=== PATIENT | male | born 1965 | race Caucasian/White ===

== ENCOUNTER 2018-04-16 13:56 | Inpatient (IN) | payer OTHER ==
[2018-04-16 16:44] VITALS: BMI 21.2
--- NOTE | 2018-04-16 19:42 | HP ---
COWS - Scale Resting Pulse: 0= [place] 80 or Below Sweatin= Chills/Flushing Restless Observation: 3= Extraneous Movement Pupil Size: 0= Normal to Room Light Bone or Joint Aches: 1= Mild Discomfort Runny Nose/ Eye Tearin= Runny Nose/Eyes GI Upset > 30mins: 2= Nausea/Diarrhea Tremor Observation: 2= Slight Tremor Visible Yawning Observation: 2= >3x During Session Anxiety or Irritability: 2=Irritable/Anxious Goose Flesh Skin: 0=Smooth Skin COWS Score: 15 Admission [facility] - [facility] Chief Complaint: " I feel sick" Allergies/Adverse Reactions: Allergies Allergy/AdvReac Type Severity Reaction Status Date / Time No Known Allergies Allergy Verified 07/21/16 12:52 History of Present Illness: 52 yo male with hx of nicotine, aranza and IV heroin dependence is here seeking detox. PMHX: Hep C and treated, depression, anxiety, insomnia. Denies suicidal / homicidal ideation. Longest period of sobriety 5 years. Last detox 12 months ago at [facility]. Exam Limitations: No Limitations - Ebola screening Have you traveled outside of the country in the last 21 days: No Have you had contact with anyone from an Ebola affected area: No Have you been sick,other than usual withdrawal symptoms: No Do you have a fever: No - Review of Systems Constitutional: Chills, Diaphoresis, Loss of Appetite, Unintentional Wgt. Loss EENT: reports: Blurred Vision (weras aglsses), Dental Problems (poor dentition) , Other (runny nose) Respiratory: reports: No Symptoms reported Cardiac: reports: No Symptoms Reported GI: reports: Diarrhea, Nausea, Poor Appetite, Poor Fluid Intake, Vomiting : reports: No Symptoms Reported Musculoskeletal: reports: Back Pain, Joint Pain Integumentary: reports: No Symptoms Reported Neuro: reports: Weakness Endocrine: reports: Increased Thirst Hematology: reports: No Symptoms Reported Psychiatric: reports: Orientated x3, Anxious Other Systems: Reviewed and Negative Patient History - Patient Medical History Hx Anemia: No Hx Asthma: Yes (MDI) Hx Chronic Obstructive Pulmonary Disease (COPD): Yes (MDI) Hx Cancer: No Hx Cardiac Disorders: No Hx Congestive Heart Failure: No Hx Hypertension: No Hx Hypercholesterolemia: No Hx Pacemaker: No HX Cerebrovascular Accident: No Hx Seizures: No Hx Dementia: No Hx Diabetes: No Hx Gastrointestinal Disorders: Yes (acid reflux) Hx Liver Disease: Yes (Hep C and treated ) Hx Genitourinary Disorders: No Hx Sexually Transmitted Disorders: Yes (GONORRHEA 1987) Hx Renal Disease (ESRD): No Hx Thyroid Disease: No Hx Human Immunodeficiency Virus (HIV): No (NEGATIVE HX) Hx Hepatitis C: Yes (SINCE 18 YRS OLD--TREATED BUT STOPPED DUE TO SIDE EFFECTS) Hx Depression: No Hx Suicide Attempt: No (DENIES) Hx Bipolar Disorder: No Hx Schizophrenia: No - Patient Surgical History Past Surgical History: No Hx Neurologic Surgery: No Hx Cataract Extraction: No Hx Cardiac Surgery: No Hx Lung Surgery: No Hx Breast Surgery: No Hx Breast Biopsy: No Hx Abdominal Surgery: No Hx Appendectomy: No Hx Cholecystectomy: No Hx Genitourinary Surgery: No Hx Section: No Hx Orthopedic Surgery: No Hx Hysterectomy: No Anesthesia Reaction: No - PPD History Previous Implant?: Yes Documented Results: Negative w/proof Date: 07/23/16 PPD to be Administered?: Yes - Smoking Cessation Smoking history: Current every day smoker Have you smoked in the past 12 months: Yes Aproximately how many cigarettes per day: 20 Hx Chewing Tobacco Use: No Initiated information on smoking cessation: Yes 'Breaking Loose' booklet given: 04/16/18 - Substance & Tx. History Hx Alcohol Use: Yes Hx Substance Use: Yes Substance Use Type: Heroin, Opiates Hx Substance Use Treatment: Yes ([facility] 12 months ago ) - Substances Abused Heroin Route: Injection Frequency: Daily Amount used: 3 - 4 Age of first use: 17 Date of Last Use: 04/16/18 Family Disease History - Family Disease History Family Disease History: Diabetes: Father (), CA: Mother ( Lung cancer), Other: Father, Mother Admission Physical Exam BHS - Vital Signs Vital Signs: Vital Signs - 24 hr 04/16/18 16:41 Temperature 98.6 F Pulse Rate 71 Respiratory 18 Rate Blood Pressure 132/81 - Physical General Appearance: Yes: Disheveled, Mild Distress, Thin, Anxious, Other ( restless) HEENTM: Yes: EOMI, Hearing grossly Normal, Normal ENT Inspection, Normocephalic , Normal Voice, DAE, Pharynx Normal, Tm's normal, Other (wears glasses) Respiratory: Yes: Chest Non-Tender, Lungs Clear, Normal Breath Sounds, No Respiratory Distress, No Accessory Muscle Use Neck: Yes: Within Normal Limits Breast: Yes: Breast Exam Deferred Cardiology: Yes: Regular Rhythm, Regular Rate Abdominal: Yes: Normal Bowel Sounds, Non Tender, Flat, Soft Genitourinary: Yes: Within Normal Limits Back: Yes: Normal Inspection Musculoskeletal: Yes: full range of Motion, Gait Steady, Pelvis Stable Extremities: Yes: Normal Capillary Refill, Normal Inspection, Normal Range of Motion, Non-Tender 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 NML intact, Fully Oriented, Alert, Motor Strength 5/5, Depressed Affect Integumentary: Yes: Normal Color, Warm, Diaphoresis Lymphatic: Yes: Within Normal Limits - Diagnostic (1) Opioid dependence with withdrawal Current Visit: Yes Status: Acute (2) COPD (chronic obstructive pulmonary disease) Current Visit: Yes Status: Chronic Qualifiers: COPD type: emphysema Emphysema type: unspecified Qualified Code(s): J43.9 - Emphysema, unspecified (3) Hx of hepatitis C Current Visit: Yes Status: Chronic (4) Anxious mood Current Visit: Yes Status: Acute (5) Weight loss Current Visit: Yes Status: Acute Cleared for Admission [facility] - Detox or Rehab [facility] Level of Care: Medically Managed Detox Regimen/Protocol: Methadone [facility] Breath Alcohol Content Breath Alcohol Content: 0 Urine Drug Screen - Results Drug Screen Negative: No Urine Drug Screen Results: OPI-Opiates
[2018-04-16] MEDS ORDERED: NICOTINE POLACRILEX 2 MG GUM BC PRN (19:46)
[2018-04-16] MEDS ORDERED: MAGNESIUM CITRATE 300 ML BOTTLE PO PRN (19:46)
[2018-04-16] MEDS ORDERED: LOPERAMIDE HCL 2 MG CAPSULE PO PRN (19:46)
[2018-04-16] MEDS ORDERED: guaiFENesin/D-METHORPHAN HB 10 ML UNIT-DOSE CUPS PO PRN (19:46)
[2018-04-16] MEDS ORDERED: IBUPROFEN 400 MG TABLET (FP) PO PRN (19:46)
[2018-04-16] MEDS ORDERED: ACETAMINOPHEN 325 MG TABLET (FP) PO PRN (19:46)
[2018-04-16] MEDS ORDERED: MENTHOL/PHENOL 1 EACH UD MM PRN (19:46)
[2018-04-16] MEDS ORDERED: P-EPHED 60MG/TRIPROLIDI 2.5MG TABLET PO PRN (19:46)
[2018-04-16] MEDS ORDERED: MAGNESIUM HYDROX 2400MG/30ML ORAL SUSPENSION 30 ML CUP PO PRN (19:46)
[2018-04-16] MEDS ORDERED: hydrOXYzine PAMOATE 50 MG CAPSULE (FP) PO PRN (19:46)
[2018-04-16] MEDS ORDERED: MAG HYDROX/AL HYDROX/SIMETH 30 ML UNIT-DOSE CUP PO PRN (19:46)
[2018-04-16] MEDS ORDERED: METHADONE HCL 10 MG TABLET (FOR DETOX USE ONLY) PO ONE ×3 (19:46→23:00)
[2018-04-16] MEDS ORDERED: ALBUTEROL SO4 18 GM HFA INHALER IH PRN (19:49)
[2018-04-16] MEDS ORDERED: ALBUTEROL SO4 0.083% IH SOL 2.5 MG/3 ML VIAL.NEB. NEB PRN (19:49)
[2018-04-16] MEDS ORDERED: diphenhydrAMINE HCL 25 MG CAPSULE (FP) PO ONE (21:39)
[2018-04-16] MEDS: THIAMINE HCL 100 MG TABLET (FP) PO SCH (22:41)
[2018-04-16] MEDS: diazePAM 5 MG TABLET PO PRN (22:42)
[2018-04-16 23:05] LABS: URINE APPEARANCE CLEAR; URINE BILIRUBIN NEGATIVE (<2.0 mg/dL); URINE COLOR YELLOW; URINE GLUCOSE (UA) NEGATIVE (NEGATIVE); URINE KETONE NEGATIVE (NEGATIVE); URINE LEUK ESTERASE NEGATIVE (NEGATIVE); URINE NITRITE NEGATIVE (NEGATIVE); URINE PROTEIN NEGATIVE (NEGATIVE)
[2018-04-17] MEDS: diazePAM 5 MG TABLET PO PRN ×4 (05:36→22:26)
[2018-04-17] MEDS ORDERED: METHADONE HCL 10 MG TABLET (FOR DETOX USE ONLY) PO ONE (10:00)
[2018-04-17] MEDS: NICOTINE 21 MG/24 HOURS TOPICAL PATCH TD SCH (10:36)
[2018-04-17] MEDS: PANTOPRAZOLE 40 MG TABLET (FP) PO SCH (10:36)
[2018-04-17] MEDS: PRENATAL VITAMINS W/ FOLIC ACID TABLET (FP) PO SCH (10:36)
--- NOTE | 2018-04-17 10:37 | CONSULT ---
[facility] Psychiatric Consult - Data Date of interview: 04/17/18 Admission source: [facility] Identifying data: This is a 52 years old male, wodowed, father of one, eduardo; ess, unemployed, on PA, with no psychiatric hospitalization history, with history of nicotine, aranza and IV heroin dependence is here seeking detox, reporting withdrawal symptoms Substance Abuse History: - Smoking Cessation. Smoking history: Current every day smoker. Have you smoked in the past 12 months: Yes. Aproximately how many cigarettes per day: 20. Hx Chewing Tobacco Use: No. Initiated information on smoking cessation: Yes. 'Breaking Loose' booklet given: 04/16/18. - Substance & Tx. History. Hx Alcohol Use: Yes. Hx Substance Use: Yes. Substance Use Type : Heroin, Opiates. Hx Substance Use Treatment: Yes ([facility] 12 months ago ). - Substances Abused. Heroin. Route: Injection. Frequency: Daily. Amount used: 3 - 4. Age of first use: 17. Date of Last Use: 04/16/18 Medical History: Weight loss history, HepC+, COPD Psychiatric History: Patient reports history of depression and anxiety, reports takign prior to admission: Elavil 25mg po qhs Physical/Sexual Abuse/Trauma History: Denies Additional Comment: Elavil 25mg po qhs Mental Status Exam - Mental Status Exam Alert and Oriented to: Person Cognitive Function: Fair Patient Appearance: Unkempt Mood: Sad Affect: Flat Patient Behavior: Sedated Speech Pattern: Delayed Voice Loudness: Mildly Soft/Quiet Thought Process: Circumstantial Thought Disorder: Being Controlled Hallucinations: Denies Suicidal Ideation: Denies Homicidal Ideation: Denies Insight/Judgement: Fair Sleep: Difficulty falling asleep Appetite: Weight loss Muscle strength/Tone: Mild Hypotonicity Gait/Station: Shuffling Additional Comments: Elavil 25mg po qhs Psychiatric Findings - Problem List ([place] 1, 2,3) (1) Opioid dependence with withdrawal Current Visit: Yes Status: Acute (2) Weight loss Current Visit: Yes Status: Acute (3) Alcohol dependence Current Visit: No Status: Acute (4) Substance induced mood disorder Current Visit: No Status: Chronic - Initial Treatment Plan Initial Treatment Plan: Elavil 25mg po qhs
[2018-04-17 10:49] LABS: CHLORIDE 108 mmol/L (98-107); POTASSIUM 3.7 mmol/L (3.5-5.1); SODIUM 141 mmol/L (136-145)
[2018-04-17 10:50] LABS: HEMATOCRIT 39.6 % (35.4-49); HEMOGLOBIN 13.6 GM/dL (11.7-16.9); MCH 31.5 pg (25.7-33.7); MCHC 34.4 g/dl (32.0-35.9); MEAN CELL VOLUME 91.7 fl (80-96); PLATELET COUNT 199 K/MM3 (134-434); RBC 4.31 M/mm3 (4.00-5.60); RDW 13.7 % (11.9-15.9); WHITE BLOOD COUNT 6.2 K/mm3 (4.0-10.0)
[2018-04-17 11:19] LABS: ALK PHOS 57 U/L (45-117); ANION GAP 6 (8-16); BILIRUBIN,TOTAL 0.4 mg/dL (0.2-1.0); BLOOD UREA NITROGEN 15 mg/dL (7-18); CALCIUM 7.9 mg/dL (8.5-10.1); CO2 27 mmol/L (21-32); CREATININE 0.9 mg/dL (0.7-1.3); GLUCOSE,RANDOM 116 mg/dL (74-106); SGOT/AST 23 U/L (15-37); SGPT/ALT 36 U/L (12-78); TOT PROT 5.9 g/dl (6.4-8.2)
--- NOTE | 2018-04-17 11:49 | PN ---
BHS COWS - Scale Resting Pulse: 0= [place] 80 or Below Sweatin= Chills/Flushing Restless Observation: 1= Difficult to Sit Still Pupil Size: 1= Pupils >than Normal Bone or Joint Aches: 2= Severe Diffuse Aches Runny Nose/ Eye Tearin= Runny Nose/Eyes GI Upset > 30mins: 2= Nausea/Diarrhea Tremor Observation of Outstretched Hands: 1= Tremor [place], Not Seen Yawning Observation: 2= >3x During Session Anxiety or Irritability: 2=Irritable/Anxious Goose Flesh Skin: 0=Smooth Skin COWS Score: 14 S Progress Note (SOAP) Subjective: joint pain body ache stuffy nose chill trouble sleep at night Objective: 04/17/18 11:47 Vital Signs Temperature 98.1 F 04/17/18 10:01 Pulse Rate 74 04/17/18 10:01 Respiratory Rate 16 04/17/18 10:01 Blood Pressure 107/65 04/17/18 10:01 O2 Sat by Pulse Oximetry (%) Laboratory Last Values WBC 6.2 K/mm3 (4.0-10.0) D 04/17/18 07:30 RBC 4.31 M/mm3 (4.00-5.60) 04/17/18 07:30 Hgb 13.6 GM/dL (11.7-16.9) 04/17/18 07:30 Hct 39.6 % (35.4-49) 04/17/18 07:30 MCV 91.7 fl (80-96) 04/17/18 07:30 MCH 31.5 pg (25.7-33.7) 04/17/18 07:30 MCHC 34.4 g/dl (32.0-35.9) 04/17/18 07:30 RDW 13.7 % (11.9-15.9) 04/17/18 07:30 Plt Count 199 K/MM3 (134-434) D 04/17/18 07:30 MPV 8.0 fl (7.5-11.1) 04/17/18 07:30 Sodium 141 mmol/L (136-145) 04/17/18 07:30 Potassium 3.7 mmol/L (3.5-5.1) 04/17/18 07:30 Chloride 108 mmol/L (98-107) H 04/17/18 07:30 Carbon Dioxide 27 mmol/L (21-32) 04/17/18 07:30 Anion Gap 6 (8-16) L 04/17/18 07:30 BUN 15 mg/dL (7-18) D 04/17/18 07:30 Creatinine 0.9 mg/dL (0.7-1.3) 04/17/18 07:30 Creat Clearance w eGFR > 60 (>60) 04/17/18 07:30 Random Glucose 116 mg/dL (74-106) H D 04/17/18 07:30 Calcium 7.9 mg/dL (8.5-10.1) L 04/17/18 07:30 Total Bilirubin 0.4 mg/dL (0.2-1.0) 04/17/18 07:30 AST 23 U/L (15-37) 04/17/18 07:30 ALT 36 U/L (12-78) 04/17/18 07:30 Alkaline Phosphatase 57 U/L (45-117) 04/17/18 07:30 Total Protein 5.9 g/dl (6.4-8.2) L 04/17/18 07:30 Albumin 3.0 g/dl (3.4-5.0) L D 04/17/18 07:30 Urine Color Yellow 04/16/18 22:13 Urine Appearance Clear 04/16/18 22:13 Urine pH 7.0 (5.0-8.0) D 04/16/18 22:13 Ur Specific [place] 1.023 (1.001-1.035) 04/16/18 22:13 Urine Protein Negative (NEGATIVE) 04/16/18 22:13 Urine Glucose (UA) Negative (NEGATIVE) 04/16/18 22:13 Urine Ketones Negative (NEGATIVE) 04/16/18 22:13 Urine Blood Negative (NEGATIVE) 04/16/18 22:13 Urine Nitrite Negative (NEGATIVE) 04/16/18 22:13 Urine Bilirubin Negative (<2.0 mg/dL) 04/16/18 22:13 Urine Urobilinogen 2.0 mg/dL (0.2-1.0) 04/16/18 22:13 Ur Leukocyte Esterase Negative (NEGATIVE) 04/16/18 22:13 lab noted low calcium serum Assessment: 04/17/18 11:48 withdrawal sx hypocalcium Plan: continue detox calcium carbonate supplement
[2018-04-17] MEDS: CALCIUM CARBONATE 650 MG TABLET PO SCH (12:19)
--- NOTE | 2018-04-17 13:29 | EKG ---
Test Reason : Blood Pressure : / mmHG Vent. Rate : 073 BPM Atrial Rate : 073 BPM P-R Int : 128 ms QRS Dur : 098 ms QT Int : 420 ms P-R-T Axes : 063 087 072 degrees QTc Int : 462 ms NORMAL SINUS RHYTHM ANTEROLATERAL INFARCT , AGE UNDETERMINED ABNORMAL ECG NO PREVIOUS ECGS AVAILABLE Confirmed by MIKE OLEARY MD ([id number]) on 04/17/2018 1:29:28 PM Referred By: Confirmed By:MIKE OLEARY MD
--- NOTE | 2018-04-17 13:30 | EKG ---
Test Reason : Blood Pressure : / mmHG Vent. Rate : 073 BPM Atrial Rate : 073 BPM P-R Int : 126 ms QRS Dur : 094 ms QT Int : 400 ms P-R-T Axes : 056 091 081 degrees QTc Int : 440 ms NORMAL SINUS RHYTHM LOW VOLTAGE QRS ANTEROLATERAL INFARCT (CITED ON OR BEFORE 16-APR-2018) ABNORMAL ECG WHEN COMPARED WITH ECG OF 16-APR-2018 22:26, NO SIGNIFICANT CHANGE WAS FOUND Confirmed by MIKE OLEARY MD ([id number]) on 04/17/2018 1:30:23 PM Referred By: Confirmed By:MIKE OLEARY MD
[2018-04-17] MEDS: MELATONIN 5 MG TABLETS PO PRN (22:26)
[2018-04-17] MEDS: THIAMINE HCL 100 MG TABLET (FP) PO SCH (22:26)
[2018-04-17] MEDS: AMITRIPTYLINE HCL 25 MG TABLET (FP) PO SCH (22:26)
[2018-04-18] MEDS: diazePAM 5 MG TABLET PO PRN ×4 (06:11→22:31)
[2018-04-18] MEDS: PANTOPRAZOLE 40 MG TABLET (FP) PO SCH (09:17)
[2018-04-18] MEDS: PRENATAL VITAMINS W/ FOLIC ACID TABLET (FP) PO SCH (09:17)
[2018-04-18] MEDS: CALCIUM CARBONATE 650 MG TABLET PO SCH (09:18)
[2018-04-18] MEDS: NICOTINE 21 MG/24 HOURS TOPICAL PATCH TD SCH (09:18)
[2018-04-18] MEDS ORDERED: METHADONE HCL 5 MG TABLET (FOR DETOX USE ONLY) PO ONE (10:00)
--- NOTE | 2018-04-18 11:29 | PN ---
BHS COWS - Scale Resting Pulse: 0= [place] 80 or Below Sweatin= Chills/Flushing Restless Observation: 1= Difficult to Sit Still Pupil Size: 1= Pupils >than Normal Bone or Joint Aches: 2= Severe Diffuse Aches Runny Nose/ Eye Tearin= Nasal Congestion GI Upset > 30mins: 1= Stomach Cramp Tremor Observation of Outstretched Hands: 2= Slight Tremor Visible Yawning Observation: 2= >3x During Session Anxiety or Irritability: 2=Irritable/Anxious Goose Flesh Skin: 0=Smooth Skin COWS Score: 13 BHS Progress Note (SOAP) Subjective: body ache joints pain sweat mild gi distress trouble sleep at night Objective: 04/18/18 11:28 Vital Signs Temperature 98 F 04/18/18 10:40 Pulse Rate 67 04/18/18 10:40 Respiratory Rate 16 04/18/18 10:40 Blood Pressure 115/83 04/18/18 10:40 O2 Sat by Pulse Oximetry (%) Laboratory Last Values WBC 6.2 K/mm3 (4.0-10.0) D 04/17/18 07:30 RBC 4.31 M/mm3 (4.00-5.60) 04/17/18 07:30 Hgb 13.6 GM/dL (11.7-16.9) 04/17/18 07:30 Hct 39.6 % (35.4-49) 04/17/18 07:30 MCV 91.7 fl (80-96) 04/17/18 07:30 MCH 31.5 pg (25.7-33.7) 04/17/18 07:30 MCHC 34.4 g/dl (32.0-35.9) 04/17/18 07:30 RDW 13.7 % (11.9-15.9) 04/17/18 07:30 Plt Count 199 K/MM3 (134-434) D 04/17/18 07:30 MPV 8.0 fl (7.5-11.1) 04/17/18 07:30 Sodium 141 mmol/L (136-145) 04/17/18 07:30 Potassium 3.7 mmol/L (3.5-5.1) 04/17/18 07:30 Chloride 108 mmol/L (98-107) H 04/17/18 07:30 Carbon Dioxide 27 mmol/L (21-32) 04/17/18 07:30 Anion Gap 6 (8-16) L 04/17/18 07:30 BUN 15 mg/dL (7-18) D 04/17/18 07:30 Creatinine 0.9 mg/dL (0.7-1.3) 04/17/18 07:30 Creat Clearance w eGFR > 60 (>60) 04/17/18 07:30 Random Glucose 116 mg/dL (74-106) H D 04/17/18 07:30 Calcium 7.9 mg/dL (8.5-10.1) L 04/17/18 07:30 Total Bilirubin 0.4 mg/dL (0.2-1.0) 04/17/18 07:30 AST 23 U/L (15-37) 04/17/18 07:30 ALT 36 U/L (12-78) 04/17/18 07:30 Alkaline Phosphatase 57 U/L (45-117) 04/17/18 07:30 Total Protein 5.9 g/dl (6.4-8.2) L 04/17/18 07:30 Albumin 3.0 g/dl (3.4-5.0) L D 04/17/18 07:30 Urine Color Yellow 04/16/18 22:13 Urine Appearance Clear 04/16/18 22:13 Urine pH 7.0 (5.0-8.0) D 04/16/18 22:13 Ur Specific [place] 1.023 (1.001-1.035) 04/16/18 22:13 Urine Protein Negative (NEGATIVE) 04/16/18 22:13 Urine Glucose (UA) Negative (NEGATIVE) 04/16/18 22:13 Urine Ketones Negative (NEGATIVE) 04/16/18 22:13 Urine Blood Negative (NEGATIVE) 04/16/18 22:13 Urine Nitrite Negative (NEGATIVE) 04/16/18 22:13 Urine Bilirubin Negative (<2.0 mg/dL) 04/16/18 22:13 Urine Urobilinogen 2.0 mg/dL (0.2-1.0) 04/16/18 22:13 Ur Leukocyte Esterase Negative (NEGATIVE) 04/16/18 22:13 RPR Titer Nonreactive (NONREACTIVE) 04/17/18 07:30 HIV 1&2 Antibody Screen Negative 04/17/18 07:30 HIV P24 Antigen Negative 04/17/18 07:30 lab noted Assessment: 04/18/18 11:28 withdrawal sx Plan: continue detox
[2018-04-18] MEDS: THIAMINE HCL 100 MG TABLET (FP) PO SCH (22:30)
[2018-04-18] MEDS: AMITRIPTYLINE HCL 25 MG TABLET (FP) PO SCH (22:30)
[2018-04-18] MEDS: MELATONIN 5 MG TABLETS PO PRN (22:30)
[2018-04-19] MEDS: diazePAM 5 MG TABLET PO PRN ×3 (05:26→17:14)
--- NOTE | 2018-04-19 09:43 | PN ---
BHS Progress Note (SOAP) Subjective: joint pain body ache sweat tremor irritable anxiety Objective: 04/19/18 09:44 Vital Signs Temperature 98.1 F 04/19/18 09:11 Pulse Rate 84 04/19/18 09:11 Respiratory Rate 16 04/19/18 09:11 Blood Pressure 127/84 04/19/18 09:11 O2 Sat by Pulse Oximetry (%) Laboratory Last Values WBC 6.2 K/mm3 (4.0-10.0) D 04/17/18 07:30 RBC 4.31 M/mm3 (4.00-5.60) 04/17/18 07:30 Hgb 13.6 GM/dL (11.7-16.9) 04/17/18 07:30 Hct 39.6 % (35.4-49) 04/17/18 07:30 MCV 91.7 fl (80-96) 04/17/18 07:30 MCH 31.5 pg (25.7-33.7) 04/17/18 07:30 MCHC 34.4 g/dl (32.0-35.9) 04/17/18 07:30 RDW 13.7 % (11.9-15.9) 04/17/18 07:30 Plt Count 199 K/MM3 (134-434) D 04/17/18 07:30 MPV 8.0 fl (7.5-11.1) 04/17/18 07:30 Sodium 141 mmol/L (136-145) 04/17/18 07:30 Potassium 3.7 mmol/L (3.5-5.1) 04/17/18 07:30 Chloride 108 mmol/L (98-107) H 04/17/18 07:30 Carbon Dioxide 27 mmol/L (21-32) 04/17/18 07:30 Anion Gap 6 (8-16) L 04/17/18 07:30 BUN 15 mg/dL (7-18) D 04/17/18 07:30 Creatinine 0.9 mg/dL (0.7-1.3) 04/17/18 07:30 Creat Clearance w eGFR > 60 (>60) 04/17/18 07:30 Random Glucose 116 mg/dL (74-106) H D 04/17/18 07:30 Calcium 7.9 mg/dL (8.5-10.1) L 04/17/18 07:30 Total Bilirubin 0.4 mg/dL (0.2-1.0) 04/17/18 07:30 AST 23 U/L (15-37) 04/17/18 07:30 ALT 36 U/L (12-78) 04/17/18 07:30 Alkaline Phosphatase 57 U/L (45-117) 04/17/18 07:30 Total Protein 5.9 g/dl (6.4-8.2) L 04/17/18 07:30 Albumin 3.0 g/dl (3.4-5.0) L D 04/17/18 07:30 Urine Color Yellow 04/16/18 22:13 Urine Appearance Clear 04/16/18 22:13 Urine pH 7.0 (5.0-8.0) D 04/16/18 22:13 Ur Specific [place] 1.023 (1.001-1.035) 04/16/18 22:13 Urine Protein Negative (NEGATIVE) 04/16/18 22:13 Urine Glucose (UA) Negative (NEGATIVE) 04/16/18 22:13 Urine Ketones Negative (NEGATIVE) 04/16/18 22:13 Urine Blood Negative (NEGATIVE) 04/16/18 22:13 Urine Nitrite Negative (NEGATIVE) 04/16/18 22:13 Urine Bilirubin Negative (<2.0 mg/dL) 04/16/18 22:13 Urine Urobilinogen 2.0 mg/dL (0.2-1.0) 04/16/18 22:13 Ur Leukocyte Esterase Negative (NEGATIVE) 04/16/18 22:13 RPR Titer Nonreactive (NONREACTIVE) 04/17/18 07:30 HIV 1&2 Antibody Screen Negative 04/17/18 07:30 HIV P24 Antigen Negative 04/17/18 07:30 continue calcium lab noted 04/19/18 09:45 Assessment: 04/19/18 09:45 withdrawal sx Plan: continue detox
[2018-04-19] MEDS ORDERED: METHADONE HCL 5 MG TABLET (FOR DETOX USE ONLY) PO ONE (10:00)
[2018-04-19] MEDS: PRENATAL VITAMINS W/ FOLIC ACID TABLET (FP) PO SCH (10:23)
[2018-04-19] MEDS: PANTOPRAZOLE 40 MG TABLET (FP) PO SCH (10:23)
[2018-04-19] MEDS: NICOTINE 21 MG/24 HOURS TOPICAL PATCH TD SCH (10:27)
[2018-04-19] MEDS: CALCIUM CARBONATE 650 MG TABLET PO SCH (10:27)
[2018-04-19] MEDS: THIAMINE HCL 100 MG TABLET (FP) PO SCH (22:16)
[2018-04-19] MEDS: AMITRIPTYLINE HCL 25 MG TABLET (FP) PO SCH (22:16)
[2018-04-19] MEDS: MELATONIN 5 MG TABLETS PO PRN (22:17)
[2018-04-20] MEDS: PRENATAL VITAMINS W/ FOLIC ACID TABLET (FP) PO SCH (09:47)
[2018-04-20] MEDS: PANTOPRAZOLE 40 MG TABLET (FP) PO SCH (09:47)
[2018-04-20] MEDS: CALCIUM CARBONATE 650 MG TABLET PO SCH (09:48)
[2018-04-20] MEDS: NICOTINE 21 MG/24 HOURS TOPICAL PATCH TD SCH (09:49)
[2018-04-20] MEDS ORDERED: METHADONE HCL 10 MG TABLET (FOR DETOX USE ONLY) PO ONE (10:00)
--- NOTE | 2018-04-20 13:28 | PN ---
[facility] Progress Note Note: alert,irritable,anxious,interrupted sleep,pain in the body aches Vital Signs Temperature 97.0 F L 04/20/18 10:00 Pulse Rate 82 04/20/18 10:00 Respiratory Rate 18 04/20/18 10:00 Blood Pressure 137/86 04/20/18 10:00 O2 Sat by Pulse Oximetry (%) Laboratory Last Values WBC 6.2 K/mm3 (4.0-10.0) D 04/17/18 07:30 RBC 4.31 M/mm3 (4.00-5.60) 04/17/18 07:30 Hgb 13.6 GM/dL (11.7-16.9) 04/17/18 07:30 Hct 39.6 % (35.4-49) 04/17/18 07:30 MCV 91.7 fl (80-96) 04/17/18 07:30 MCH 31.5 pg (25.7-33.7) 04/17/18 07:30 MCHC 34.4 g/dl (32.0-35.9) 04/17/18 07:30 RDW 13.7 % (11.9-15.9) 04/17/18 07:30 Plt Count 199 K/MM3 (134-434) D 04/17/18 07:30 MPV 8.0 fl (7.5-11.1) 04/17/18 07:30 Sodium 141 mmol/L (136-145) 04/17/18 07:30 Potassium 3.7 mmol/L (3.5-5.1) 04/17/18 07:30 Chloride 108 mmol/L (98-107) H 04/17/18 07:30 Carbon Dioxide 27 mmol/L (21-32) 04/17/18 07:30 Anion Gap 6 (8-16) L 04/17/18 07:30 BUN 15 mg/dL (7-18) D 04/17/18 07:30 Creatinine 0.9 mg/dL (0.7-1.3) 04/17/18 07:30 Creat Clearance w eGFR > 60 (>60) 04/17/18 07:30 Random Glucose 116 mg/dL (74-106) H D 04/17/18 07:30 Calcium 7.9 mg/dL (8.5-10.1) L 04/17/18 07:30 Total Bilirubin 0.4 mg/dL (0.2-1.0) 04/17/18 07:30 AST 23 U/L (15-37) 04/17/18 07:30 ALT 36 U/L (12-78) 04/17/18 07:30 Alkaline Phosphatase 57 U/L (45-117) 04/17/18 07:30 Total Protein 5.9 g/dl (6.4-8.2) L 04/17/18 07:30 Albumin 3.0 g/dl (3.4-5.0) L D 04/17/18 07:30 Urine Color Yellow 04/16/18 22:13 Urine Appearance Clear 04/16/18 22:13 Urine pH 7.0 (5.0-8.0) D 04/16/18 22:13 Ur Specific [place] 1.023 (1.001-1.035) 04/16/18 22:13 Urine Protein Negative (NEGATIVE) 04/16/18 22:13 Urine Glucose (UA) Negative (NEGATIVE) 04/16/18 22:13 Urine Ketones Negative (NEGATIVE) 04/16/18 22:13 Urine Blood Negative (NEGATIVE) 04/16/18 22:13 Urine Nitrite Negative (NEGATIVE) 04/16/18 22:13 Urine Bilirubin Negative (<2.0 mg/dL) 04/16/18 22:13 Urine Urobilinogen 2.0 mg/dL (0.2-1.0) 04/16/18 22:13 Ur Leukocyte Esterase Negative (NEGATIVE) 04/16/18 22:13 RPR Titer Nonreactive (NONREACTIVE) 04/17/18 07:30 HIV 1&2 Antibody Screen Negative 04/17/18 07:30 HIV P24 Antigen Negative 04/17/18 07:30 withdrawal sx continue to monitor
--- NOTE | 2018-04-20 14:33 | PN ---
S Progress Note Note: Patient will go to rehab [place] today. Patient is in agreement. d/c order placed d/c methadone 5mg
[2018-04-20 17:42] VITALS: BP 133/79; PULSE 83; TEMP 97.9
[2018-04-21] MEDS ORDERED: METHADONE HCL 5 MG TABLET (FOR DETOX USE ONLY) PO ONE (06:00)
== END 2018-04-20 18:16 | disposition other institution (70) | DRG 773 ==
LOC: YASAS 13:56 → Y6N 20:54
PROVIDERS: ADMIT Surgery; ATTEND Surgery
PROC: HZ2ZZZZ Detoxification Services for Substance Abuse Treatment (ICD-10-PCS; principal; 2018-04-16)
DX: F11.23 Opioid dependence with withdrawal (principal); F10.20 Alcohol dependence, uncomplicated; F41.9 Anxiety disorder, unspecified; F19.24 Other psychoactive substance dependence with psychoactive substance-induced mood disorder; B18.2 Chronic viral hepatitis C; F43.9 Reaction to severe stress, unspecified; J45.909 Unspecified asthma, uncomplicated; R63.4 Abnormal weight loss; Z68.21 Body mass index [BMI] 21.0-21.9, adult; Z86.19 Personal history of other infectious and parasitic diseases; Z59.0 Homelessness
CPT/HCPCS: 36415; 80053; 81003; 85027; 86593; 87389; 93005; 93010

== ENCOUNTER 2018-04-20 18:14 | Inpatient (IN) | payer OTHER ==
[2018-04-20] MEDS ORDERED: MENTHOL/PHENOL 1 EACH UD MM PRN (19:29)
[2018-04-20] MEDS ORDERED: P-EPHED 60MG/TRIPROLIDI 2.5MG TABLET PO PRN (19:29)
[2018-04-20] MEDS ORDERED: LOPERAMIDE HCL 2 MG CAPSULE PO PRN (19:29)
[2018-04-20] MEDS ORDERED: IBUPROFEN 400 MG TABLET (FP) PO PRN (19:29)
[2018-04-20] MEDS ORDERED: MAG HYDROX/AL HYDROX/SIMETH 30 ML UNIT-DOSE CUP PO PRN (19:29)
[2018-04-20] MEDS ORDERED: MAGNESIUM CITRATE 300 ML BOTTLE PO PRN (19:29)
[2018-04-20] MEDS ORDERED: ACETAMINOPHEN 325 MG TABLET (FP) PO PRN (19:29)
[2018-04-20] MEDS ORDERED: MAGNESIUM HYDROX 2400MG/30ML ORAL SUSPENSION 30 ML CUP PO PRN (19:29)
[2018-04-20] MEDS ORDERED: guaiFENesin/D-METHORPHAN HB 10 ML UNIT-DOSE CUPS PO PRN (19:29)
[2018-04-20] MEDS ORDERED: hydrOXYzine PAMOATE 50 MG CAPSULE (FP) PO PRN (19:29)
[2018-04-20] MEDS ORDERED: NICOTINE POLACRILEX 2 MG GUM BUC PRN (19:30)
[2018-04-20] MEDS ORDERED: ALBUTEROL SO4 0.083% IH SOL 2.5 MG/3 ML VIAL.NEB. NEB PRN (19:31)
[2018-04-20] MEDS ORDERED: ALBUTEROL SO4 18 GM HFA INHALER IH PRN (19:31)
--- NOTE | 2018-04-20 19:33 | HP ---
[facility] Assess/Revision - Admission History Admitted to Rehab from: [facility] [place] Date of Admission to Rehab: 04/20/18 - Findings Detox History & Physical reviewed: Yes Concur with findings: Yes Inpatient Rehab Admission - Initial Determination Are CD services needed?: Yes Free of communicable disease: Yes Not in need of hospitalization: Yes - Rehab Admission Criteria Previous failed treatment: Yes Poor recovery environment: Yes Comorbidities: Yes Lacks judgement: Yes Patient is meeting Inpatient Rehab admission criteria:: Yes
[2018-04-20] MEDS: AMITRIPTYLINE HCL 25 MG TABLET (FP) PO SCH (21:15)
[2018-04-20] MEDS: THIAMINE HCL 100 MG TABLET (FP) PO SCH (21:15)
[2018-04-20] MEDS ORDERED: MELATONIN 5 MG TABLETS PO PRN (22:00)
[2018-04-21] MEDS: PANTOPRAZOLE 40 MG TABLET (FP) PO SCH (09:37)
[2018-04-21] MEDS: PRENATAL VITAMINS W/ FOLIC ACID TABLET (FP) PO SCH (09:37)
[2018-04-21] MEDS: NICOTINE 21 MG/24 HOURS TOPICAL PATCH TD SCH (12:28)
[2018-04-21] MEDS: THIAMINE HCL 100 MG TABLET (FP) PO SCH (22:00)
[2018-04-21] MEDS: AMITRIPTYLINE HCL 25 MG TABLET (FP) PO SCH (22:00)
[2018-04-22 06:45] VITALS: BP 121/89; PULSE 86; TEMP 98
[2018-04-22] MEDS: NICOTINE 21 MG/24 HOURS TOPICAL PATCH TD SCH (10:42)
[2018-04-22] MEDS: PRENATAL VITAMINS W/ FOLIC ACID TABLET (FP) PO SCH (10:42)
[2018-04-22] MEDS: PANTOPRAZOLE 40 MG TABLET (FP) PO SCH (10:42)
[2018-04-22] MEDS: THIAMINE HCL 100 MG TABLET (FP) PO SCH (23:48)
[2018-04-22] MEDS: AMITRIPTYLINE HCL 25 MG TABLET (FP) PO SCH (23:48)
[2018-04-23] MEDS: PANTOPRAZOLE 40 MG TABLET (FP) PO SCH (11:00)
[2018-04-23] MEDS: NICOTINE 21 MG/24 HOURS TOPICAL PATCH TD SCH (11:00)
[2018-04-23] MEDS: PRENATAL VITAMINS W/ FOLIC ACID TABLET (FP) PO SCH (11:00)
--- NOTE | 2018-04-23 15:09 | HP ---
Psychiatrist Admission - Data Date of interview: 04/23/18 Admission source: Transfer from [address] [place] [address] Identifying data: Case of a 52 y/o male seeking rehabilitation treatment at [address] to address alcohol and opioid dependence.Patient is ,a father of one,currently homeless,unemployed and supported on food stamps. Medical History: Remarkable for hepatitis C and COPD. Psychiatric History: Patient denies history of psychiatric hospitalizations but he aknowledges a prior contact with Psychiatry,several months ago,because of depression and anxiety.Briefly treated with an antidepressant (name not recalled ).Dropped out of treatment after a few sessions with psychiatrist.Used to be prescribed trazodone for insomnia.Stopped taking that drug due to side effects and his personal " fear " of psychotropic medications.Mr Gtz denies history of suicide attempts. Physical/Sexual Abuse/Trauma History: Patient denies history of abuse.Current stressors : separation from siblings,financial difficulties,addictions, homelessness and lack of a support network. Additional Comment: Urine Drug Screen Results: OPI-Opiates. Smoking history: Current every day smoker. Have you smoked in the past 12 months: Yes. Aproximately how many cigarettes per day: 20. Hx Chewing Tobacco Use: No. Initiated information on smoking cessation: Yes. 'Breaking Loose' booklet given : 04/16/18. - Substance & Tx. History. Hx Alcohol Use: Yes. Hx Substance Use : Yes. Substance Use Type: Heroin, Opiates. Hx Substance Use Treatment: Yes ( [facility] 12 months ago ). - Substances Abused. Heroin. Route: Injection. Frequency: Daily. Amount used: 3 - 4. Age of first use: 17. Date of Last Use : 04/16/18 Vital Signs: Vital Signs - 24 hr 04/23/18 04/23/18 04/23/18 00:30 03:30 07:02 Respiratory 18 18 18 Rate 04/23/18 07:33 Respiratory 18 Rate Allergies/Adverse Reactions: Allergies Allergy/AdvReac Type Severity Reaction Status Date / Time No Known Allergies Allergy Verified 04/16/18 21:10 - Substance Abuse/Tx History Hx Alcohol Use: Yes Hx Substance Use: Yes (heroin,alcohol,nicotine ) Substance Use Type: Alcohol, Heroin Hx Substance Use Treatment: Yes Mental Status Exam - Mental Status Exam Alert and Oriented to: Time, Place, Person Cognitive Function: Grossly Intact Patient Appearance: Unkempt, Disheveled Mood: Nervous, Irritable Affect: Mood Congruent, Constricted Patient Behavior: Cooperative Speech Pattern: Clear Voice Loudness: Normal Thought Process: Intact, Goal Oriented Thought Disorder: Not Present Hallucinations: Denies Suicidal Ideation: Denies Homicidal Ideation: Denies Insight/Judgement: Fair Sleep: Fair Appetite: Good Muscle strength/Tone: Normal Gait/Station: Normal Psychiatric Findings - Problem List ([place] 1, 2,3) (1) Opioid dependence Current Visit: Yes Status: Acute (2) Alcohol dependence Current Visit: Yes Status: Acute (3) Nicotine dependence Current Visit: Yes Status: Acute (4) Substance induced mood disorder Current Visit: Yes Status: Acute - Initial Treatment Plan Initial Treatment Plan: Psychoeducation.Sleep hygiene discussed in this session (patient declines to take hypnotic medications).Supportive/Group therapy.Observation.
[2018-04-23] MEDS: THIAMINE HCL 100 MG TABLET (FP) PO SCH (22:16)
[2018-04-23] MEDS: AMITRIPTYLINE HCL 25 MG TABLET (FP) PO SCH (22:16)
[2018-04-24] MEDS: PANTOPRAZOLE 40 MG TABLET (FP) PO SCH (10:34)
[2018-04-24] MEDS: NICOTINE 21 MG/24 HOURS TOPICAL PATCH TD SCH (10:34)
[2018-04-24] MEDS: PRENATAL VITAMINS W/ FOLIC ACID TABLET (FP) PO SCH (10:34)
--- NOTE | 2018-04-24 11:37 | PN ---
[facility] Progress Note Note: Psychiatric nurse practitioner note: Patient leaving AMA. Pt. encouraged to stay but refused to continue treatment. Pt. states he is not content with his treatment and prefers to go elsewhere. Pt. denies thoughts or urges to hurt himself or others.
== END 2018-04-24 11:30 | disposition left against medical advice (07) | DRG 770 ==
LOC: YASAS 18:14 → Y5N 18:15
PROVIDERS: ADMIT Psychiatry & Neurology Psychiatry; ATTEND Psychiatry & Neurology Psychiatry
PROC: HZ42ZZZ Group Counseling for Substance Abuse Treatment, Cognitive-Behavioral (ICD-10-PCS; principal; 2018-04-20)
DX: F11.20 Opioid dependence, uncomplicated (principal); F10.20 Alcohol dependence, uncomplicated; F17.210 Nicotine dependence, cigarettes, uncomplicated; F19.24 Other psychoactive substance dependence with psychoactive substance-induced mood disorder; Z59.0 Homelessness

== ENCOUNTER 2018-12-26 10:52 | Inpatient (IN) | payer BC, OTHER ==
[2018-12-26 11:18] VITALS: BMI 22.9
--- NOTE | 2018-12-26 13:13 | HP ---
COWS - Scale Resting Pulse: 1= [place] 81-100 Sweatin= Chills/Flushing Restless Observation: 1= Difficult to Sit Still Pupil Size: 0= Normal to Room Light Bone or Joint Aches: 4=Acute Joint/Muscle Pain Runny Nose/ Eye Tearin= Runny Nose/Eyes GI Upset > 30mins: 1= Stomach Cramp Tremor Observation: 0= None Yawning Observation: 1= 1-2x During Session Anxiety or Irritability: 2=Irritable/Anxious Goose Flesh Skin: 0=Smooth Skin COWS Score: 13 CIWA Score - Admission Criteria OASAS Guidelines: Admission for Medically Managed Detox: Requires at least one of the followin. CIWA greater than 12 2. Seizures within the past 24 hours 3. Delirium tremens within the past 24 hours 4. Hallucinations within the past 24 hours 5. Acute intervention needed for co occurring medical disorder 6. Acute intervention needed for co occurring psychiatric disorder 7. Severe withdrawal that cannot be handled at a lower level of care (continued vomiting, continued diarrhea, abnormal vital signs) requiring intravenous medication and/or fluids 8. Admission ROS [facility] - HPI Allergies/Adverse Reactions: Allergies Allergy/AdvReac Type Severity Reaction Status Date / Time No Known Allergies Allergy Verified 12/26/18 12:19 History of Present Illness: pt here requesting detox from heroin use, reports 4 bags/day IVDU and via inhalation intermittently x 15 years , detox " a handful of times, " , rehab 2 x , most recently 18 mo ago at this facility , latest use 2 a.m. denies other illicits claims took subutex 1 week ago . reports h/o OM 8 mo ago hospitalized x 8 weeks IV Abx [place], [place] . OD x 2 , Narcan by EMS 6 mo ago etoh - denies tobacco : 1 ppd PMhx: hep C, COPD , gerd , old right heel fracture ( no surgery ) PSHx : denies PSych : denies meds : protonix, albuterol Exam Limitations: No Limitations - Ebola screening Have you traveled outside of the country in the last 21 days: No Have you had contact with anyone from an Ebola affected area: No Have you been sick,other than usual withdrawal symptoms: No Do you have a fever: No - Review of Systems Constitutional: See HPI EENT: reports: Other (glasses , denies dysphgia) Respiratory: reports: No Symptoms reported Cardiac: reports: No Symptoms Reported GI: reports: See HPI : reports: No Symptoms Reported Musculoskeletal: reports: See HPI, Other (right heel pain old injury) Integumentary: reports: See HPI Neuro: reports: No Symptoms reported Endocrine: reports: No Symptoms Reported Psychiatric: reports: Orientated x3, Agitated, Anxious Patient History - Patient Medical History Hx Anemia: No Hx Asthma: No Hx Chronic Obstructive Pulmonary Disease (COPD): Yes Hx Cancer: No Hx Cardiac Disorders: No Hx Congestive Heart Failure: No Hx Hypertension: No Hx Hypercholesterolemia: No Hx Pacemaker: No HX Cerebrovascular Accident: No Hx Seizures: No Hx Dementia: No Hx Diabetes: No Hx Gastrointestinal Disorders: Yes (acid reflux) Hx Liver Disease: Yes (Hep C and treated ) Hx Genitourinary Disorders: No Hx Sexually Transmitted Disorders: No Hx Renal Disease (ESRD): No Hx Thyroid Disease: No Hx Human Immunodeficiency Virus (HIV): No (NEGATIVE HX) Hx Hepatitis C: Yes (SINCE 18 YRS OLD--TREATED BUT STOPPED DUE TO SIDE EFFECTS) Hx Depression: No Hx Suicide Attempt: No Hx Bipolar Disorder: No Hx Schizophrenia: No - Patient Surgical History Past Surgical History: No Hx Neurologic Surgery: No Hx Cataract Extraction: No Hx Cardiac Surgery: No Hx Lung Surgery: No Hx Breast Surgery: No Hx Breast Biopsy: No Hx Abdominal Surgery: No Hx Appendectomy: No Hx Cholecystectomy: No Hx Genitourinary Surgery: No Hx Section: No Hx Orthopedic Surgery: No Hx Hysterectomy: No Anesthesia Reaction: No - PPD History Previous Implant?: Yes Documented Results: Negative w/proof Implanted On Prior [facility] Admission?: Yes Date: 04/18/18 Results: 0 mm - Smoking Cessation Smoking history: Current every day smoker Have you smoked in the past 12 months: Yes Aproximately how many cigarettes per day: 20 Hx Chewing Tobacco Use: No Initiated information on smoking cessation: No - Substances Abused Heroin Route: Inhalation Frequency: Daily Amount used: 4-5 bags Age of first use: 18 Date of Last Use: 12/26/18 Suboxone Route: SL Frequency: 1-3 times last 30 days Amount used: 1 tab. Age of first use: 49 Date of Last Use: 12/30/18 Alcohol--vodka Route: Oral Frequency: 1-3 times last 30 days Amount used: 1/2 pt. Age of first use: 12 Date of Last Use: 12/19/18 Family Disease History - Family Disease History Family Disease History: Diabetes: Father (), CA: Mother ( Lung cancer), Other: Father, Mother Admission Physical Exam S - Vital Signs Vital Signs: Vital Signs - 24 hr 12/26/18 11:12 Temperature 97.6 F Pulse Rate 91 H Respiratory 18 Rate Blood Pressure 138/96 - Physical General Appearance: Yes: Mild Distress HEENTM: Yes: EOMI, Hearing grossly Normal, Normocephalic, Normal Voice, Other ( poor dentition, many missing teeth) Respiratory: Yes: Chest Non-Tender, Lungs Clear, Normal Breath Sounds Neck: Yes: No masses,lesions,Nodules, Trachea in good position Cardiology: Yes: Regular Rhythm, Regular Rate, S1, S2 Abdominal: Yes: Normal Bowel Sounds, Non Tender, Soft Genitourinary: Yes: Within Normal Limits Back: Yes: Normal Inspection Musculoskeletal: Yes: full range of Motion, Gait Steady Extremities: Yes: Normal Range of Motion, Non-Tender Neurological: Yes: Motor Strength 5/5, Normal Mood/Affect Integumentary: Yes: Normal Color, Track Hansen (bilateral ante- cubital) - Diagnostic (1) Nicotine dependence Current Visit: No Status: Chronic Qualifiers: Nicotine product type: cigarettes (2) Opioid dependence with withdrawal Current Visit: No Status: Acute BHS Breath Alcohol Content Breath Alcohol Content: 0.007 Urine Drug Screen - Results Drug Screen Negative: No Urine Drug Screen Results: OPI-Opiates, FEN-Fentanyl, BUP-Suboxone Inpatient Rehab Admission - Rehab Decision to Admit Inpatient rehab admission?: No
[2018-12-26] MEDS ORDERED: MENTHOL/PHENOL 1 EACH UD MM PRN (13:17)
[2018-12-26] MEDS ORDERED: MAG HYDROX/AL HYDROX/SIMETH 30 ML UNIT-DOSE CUP PO PRN (13:17)
[2018-12-26] MEDS ORDERED: NICOTINE POLACRILEX 2 MG GUM BUC PRN (13:17)
[2018-12-26] MEDS ORDERED: ACETAMINOPHEN 325 MG TABLET (FP) PO PRN (13:17)
[2018-12-26] MEDS ORDERED: MAGNESIUM HYDROX 2400MG/30ML ORAL SUSPENSION 30 ML CUP PO PRN (13:17)
[2018-12-26] MEDS ORDERED: guaiFENesin/D-METHORPHAN HB 10 ML UNIT-DOSE CUPS PO PRN (13:17)
[2018-12-26] MEDS ORDERED: P-EPHED 60MG/TRIPROLIDI 2.5MG TABLET PO PRN (13:17)
[2018-12-26] MEDS ORDERED: IBUPROFEN 400 MG TABLET (FP) PO PRN (13:17)
[2018-12-26] MEDS ORDERED: MAGNESIUM CITRATE 300 ML BOTTLE PO PRN (13:17)
[2018-12-26] MEDS ORDERED: ALBUTEROL SO4 8 GM HFA INHALER IH PRN (13:18)
[2018-12-26] MEDS ORDERED: ALBUTEROL SO4 0.083% IH SOL 2.5 MG/3 ML VIAL.NEB. NEB PRN (13:41)
[2018-12-26] MEDS ORDERED: METHADONE HCL 10 MG TABLET (FOR DETOX USE ONLY) PO ONE ×2 (14:30→23:00)
[2018-12-26] MEDS: hydrOXYzine PAMOATE 25 MG CAPSULE (FP) PO PRN ×2 (17:15→22:11)
[2018-12-26] MEDS: THIAMINE HCL 100 MG TABLET (FP) PO SCH (22:11)
[2018-12-26] MEDS: MELATONIN 5 MG TABLETS PO PRN (22:11)
[2018-12-27] MEDS ORDERED: METHADONE HCL 10 MG TABLET (FOR DETOX USE ONLY) PO ONE (10:00)
[2018-12-27] MEDS: PRENATAL VITAMINS W/ FOLIC ACID TABLET (FP) PO SCH (10:07)
[2018-12-27] MEDS: PANTOPRAZOLE 40 MG TABLET (FP) PO SCH (10:07)
[2018-12-27 10:08] LABS: HEMATOCRIT 44.4 % (35.4-49); HEMOGLOBIN 15.6 GM/dL (11.7-16.9); MCH 33.2 pg (25.7-33.7); MCHC 35.1 g/dl (32.0-35.9); MEAN CELL VOLUME 94.8 fl (80-96); MEAN PLT VOLUME 7.5 fl (7.5-11.1); PLATELET COUNT 310 K/MM3 (134-434); RBC 4.69 M/mm3 (4.00-5.60); RDW 13.4 % (11.9-15.9); WHITE BLOOD COUNT 7.6 K/mm3 (4.0-10.0)
[2018-12-27 10:30] LABS: ALBUMIN 3.6 g/dl (3.4-5.0); ALK PHOS 63 U/L (45-117); ANION GAP 8 MMOL/L (8-16); BILIRUBIN,TOTAL 0.3 mg/dL (0.2-1); BLOOD UREA NITROGEN 17 mg/dL (7-18); CALCIUM 8.6 mg/dL (8.5-10.1); CHLORIDE 102 mmol/L (98-107); CO2 28 mmol/L (21-32); CREATININE 0.8 mg/dL (0.55-1.3); GLUCOSE,RANDOM 120 mg/dL (74-106); POTASSIUM 4.1 mmol/L (3.5-5.1); SGOT/AST 27 U/L (15-37); SGPT/ALT 35 U/L (13-61); SODIUM 137 mmol/L (136-145); TOT PROT 7.5 g/dl (6.4-8.2)
[2018-12-27] MEDS ORDERED: TRIMETHOBENZAMIDE HCL 200MG/2ML INJ IM PRN (14:25)
--- NOTE | 2018-12-27 16:23 | PN ---
BHS COWS - Scale Resting Pulse: 1= [place] 81-100 Sweatin= Chills/Flushing Restless Observation: 0= Sits Still Pupil Size: 0= Normal to Room Light Bone or Joint Aches: 2= Severe Diffuse Aches Runny Nose/ Eye Tearin= None GI Upset > 30mins: 2= Nausea/Diarrhea Tremor Observation of Outstretched Hands: 2= Slight Tremor Visible Yawning Observation: 1= 1-2x During Session Anxiety or Irritability: 2=Irritable/Anxious Goose Flesh Skin: 3=Piloerection COWS Score: 14 BHS Progress Note (SOAP) Subjective: Nausea, Anxious, Body Aches, Tremors, Sweating, Interrupted Sleep. Objective: PATIENT A & O X 3, OBSERVED AMBULATING ON UNIT. IN NO ACUTE DISTRESS. 12/27/18 16:23 Vital Signs Temperature 98.6 F 12/27/18 13:03 Pulse Rate 68 12/27/18 13:03 Respiratory Rate 18 12/27/18 13:03 Blood Pressure 130/87 12/27/18 13:03 O2 Sat by Pulse Oximetry (%) Laboratory Tests 12/26/18 12/27/18 12/27/18 13:10 06:00 06:00 WBC 7.6 RBC 4.69 Hgb 15.6 Hct 44.4 MCV 94.8 MCH 33.2 MCHC 35.1 RDW 13.4 Plt Count 310 D MPV 7.5 Sodium 137 Potassium 4.1 Chloride 102 Carbon Dioxide 28 Anion Gap 8 BUN 17 Creatinine 0.8 Creat Clearance w eGFR > 60 Random Glucose 120 H Calcium 8.6 Total Bilirubin 0.3 AST 27 ALT 35 Alkaline Phosphatase 63 Total Protein 7.5 Albumin 3.6 RPR Titer HIV 1&2 Antibody Screen Negative HIV P24 Antigen Negative 12/27/18 06:00 WBC RBC Hgb Hct MCV MCH MCHC RDW Plt Count MPV Sodium Potassium Chloride Carbon Dioxide Anion Gap BUN Creatinine Creat Clearance w eGFR Random Glucose Calcium Total Bilirubin AST ALT Alkaline Phosphatase Total Protein Albumin RPR Titer Nonreactive HIV 1&2 Antibody Screen HIV P24 Antigen LABS NOTED. Assessment: 12/27/18 16:23 WITHDRAWAL SYMPTOMS. Plan: CONTINUE DETOX. PRN TIGAN IM FOR NAUSEA.
[2018-12-27] MEDS: THIAMINE HCL 100 MG TABLET (FP) PO SCH (22:03)
[2018-12-27] MEDS: hydrOXYzine PAMOATE 25 MG CAPSULE (FP) PO PRN (22:04)
[2018-12-27] MEDS: MELATONIN 5 MG TABLETS PO PRN (22:04)
[2018-12-28] MEDS ORDERED: METHADONE HCL 5 MG TABLET (FOR DETOX USE ONLY) PO ONE (10:00)
[2018-12-28] MEDS: PRENATAL VITAMINS W/ FOLIC ACID TABLET (FP) PO SCH (10:08)
[2018-12-28] MEDS: PANTOPRAZOLE 40 MG TABLET (FP) PO SCH (10:08)
--- NOTE | 2018-12-28 10:21 | PN ---
BHS COWS - Scale Resting Pulse: 1= [place] 81-100 Sweatin= Chills/Flushing Restless Observation: 1= Difficult to Sit Still Pupil Size: 0= Normal to Room Light Bone or Joint Aches: 1= Mild Discomfort Runny Nose/ Eye Tearin= Nasal Congestion GI Upset > 30mins: 2= Nausea/Diarrhea Tremor Observation of Outstretched Hands: 1= Tremor [place], Not Seen Yawning Observation: 0= None Anxiety or Irritability: 2=Irritable/Anxious Goose Flesh Skin: 0=Smooth Skin COWS Score: 10 BHS Progress Note (SOAP) Subjective: pt states having heroin ,withdrawal Sx- day #2 today Vital Signs - 24 hr 12/27/18 12/27/18 12/28/18 13:03 21:55 00:29 Temperature 98.6 F 98.4 F Pulse Rate 68 18 L Respiratory 18 82 H 18 Rate Blood Pressure 130/87 117/82 12/28/18 12/28/18 06:15 09:13 Temperature 96.6 F L 98.2 F Pulse Rate 57 L 64 Respiratory 18 16 Rate Blood Pressure 123/75 104/64 Laboratory Tests 12/26/18 12/27/18 12/27/18 13:10 06:00 06:00 WBC 7.6 RBC 4.69 Hgb 15.6 Hct 44.4 MCV 94.8 MCH 33.2 MCHC 35.1 RDW 13.4 Plt Count 310 D MPV 7.5 Sodium 137 Potassium 4.1 Chloride 102 Carbon Dioxide 28 Anion Gap 8 BUN 17 Creatinine 0.8 Creat Clearance w eGFR > 60 Random Glucose 120 H Calcium 8.6 Total Bilirubin 0.3 AST 27 ALT 35 Alkaline Phosphatase 63 Total Protein 7.5 Albumin 3.6 RPR Titer HIV 1&2 Antibody Screen Negative HIV P24 Antigen Negative 12/27/18 06:00 WBC RBC Hgb Hct MCV MCH MCHC RDW Plt Count MPV Sodium Potassium Chloride Carbon Dioxide Anion Gap BUN Creatinine Creat Clearance w eGFR Random Glucose Calcium Total Bilirubin AST ALT Alkaline Phosphatase Total Protein Albumin RPR Titer Nonreactive HIV 1&2 Antibody Screen HIV P24 Antigen a/p: continue heroin detox protocol valium prn clonidine and vistaril prn
[2018-12-28] MEDS ORDERED: hydrOXYzine PAMOATE 50 MG CAPSULE (FP) PO PRN (10:22)
[2018-12-28] MEDS ORDERED: cloNIDine HCL 0.1 MG TABLET PO PRN (11:17)
[2018-12-28] MEDS: THIAMINE HCL 100 MG TABLET (FP) PO SCH (21:57)
[2018-12-28] MEDS: MELATONIN 5 MG TABLETS PO PRN (21:58)
[2018-12-29] MEDS ORDERED: METHADONE HCL 10 MG TABLET (FOR DETOX USE ONLY) PO ONE (10:00)
[2018-12-29] MEDS: PANTOPRAZOLE 40 MG TABLET (FP) PO SCH (10:05)
[2018-12-29] MEDS: PRENATAL VITAMINS W/ FOLIC ACID TABLET (FP) PO SCH (10:06)
--- NOTE | 2018-12-29 13:30 | PN ---
BHS COWS - Scale Resting Pulse: 0= [place] 80 or Below Sweatin= Chills/Flushing Restless Observation: 0= Sits Still Pupil Size: 1= Pupils >than Normal Bone or Joint Aches: 1= Mild Discomfort Runny Nose/ Eye Tearin= Nasal Congestion GI Upset > 30mins: 1= Stomach Cramp Tremor Observation of Outstretched Hands: 1= Tremor [place], Not Seen Yawning Observation: 1= 1-2x During Session Anxiety or Irritability: 1=Feels Anxious/Irritable Goose Flesh Skin: 0=Smooth Skin COWS Score: 8 BHS Progress Note (SOAP) Subjective: feeling better mild body aches less sweating sleep better at night Objective: 12/29/18 13:29 Vital Signs Temperature 97.8 F 12/29/18 13:25 Pulse Rate 76 12/29/18 13:25 Respiratory Rate 18 12/29/18 13:25 Blood Pressure 113/78 12/29/18 13:25 O2 Sat by Pulse Oximetry (%) Laboratory Last Values WBC 7.6 K/mm3 (4.0-10.0) 12/27/18 06:00 RBC 4.69 M/mm3 (4.00-5.60) 12/27/18 06:00 Hgb 15.6 GM/dL (11.7-16.9) 12/27/18 06:00 Hct 44.4 % (35.4-49) 12/27/18 06:00 MCV 94.8 fl (80-96) 12/27/18 06:00 MCH 33.2 pg (25.7-33.7) 12/27/18 06:00 MCHC 35.1 g/dl (32.0-35.9) 12/27/18 06:00 RDW 13.4 % (11.9-15.9) 12/27/18 06:00 Plt Count 310 K/MM3 (134-434) D 12/27/18 06:00 MPV 7.5 fl (7.5-11.1) 12/27/18 06:00 Sodium 137 mmol/L (136-145) 12/27/18 06:00 Potassium 4.1 mmol/L (3.5-5.1) 12/27/18 06:00 Chloride 102 mmol/L (98-107) 12/27/18 06:00 Carbon Dioxide 28 mmol/L (21-32) 12/27/18 06:00 Anion Gap 8 MMOL/L (8-16) 12/27/18 06:00 BUN 17 mg/dL (7-18) 12/27/18 06:00 Creatinine 0.8 mg/dL (0.55-1.3) 12/27/18 06:00 Creat Clearance w eGFR > 60 (>60) 12/27/18 06:00 Random Glucose 120 mg/dL (74-106) H 12/27/18 06:00 Calcium 8.6 mg/dL (8.5-10.1) 12/27/18 06:00 Total Bilirubin 0.3 mg/dL (0.2-1) 12/27/18 06:00 AST 27 U/L (15-37) 12/27/18 06:00 ALT 35 U/L (13-61) 12/27/18 06:00 Alkaline Phosphatase 63 U/L (45-117) 12/27/18 06:00 Total Protein 7.5 g/dl (6.4-8.2) 12/27/18 06:00 Albumin 3.6 g/dl (3.4-5.0) 12/27/18 06:00 RPR Titer Nonreactive (NONREACTIVE) 12/27/18 06:00 HIV 1&2 Antibody Screen Negative 12/26/18 13:10 HIV P24 Antigen Negative 12/26/18 13:10 lab noted Assessment: 12/29/18 13:29 mild withdrawal sx no teeth Plan: continue detox able to chew regular food
[2018-12-29] MEDS: THIAMINE HCL 100 MG TABLET (FP) PO SCH (22:23)
[2018-12-30] MEDS ORDERED: METHADONE HCL 5 MG TABLET (FOR DETOX USE ONLY) PO ONE (06:00)
--- NOTE | 2018-12-30 09:04 | DS ---
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9) 12/27/18 06:00 Plt Count 310 K/MM3 (134-434) D 12/27/18 06:00 MPV 7.5 fl (7.5-11.1) 12/27/18 06:00 Sodium 137 mmol/L (136-145) 12/27/18 06:00 Potassium 4.1 mmol/L (3.5-5.1) 12/27/18 06:00 Chloride 102 mmol/L (98-107) 12/27/18 06:00 Carbon Dioxide 28 mmol/L (21-32) 12/27/18 06:00 Anion Gap 8 MMOL/L (8-16) 12/27/18 06:00 BUN 17 mg/dL (7-18) 12/27/18 06:00 Creatinine 0.8 mg/dL (0.55-1.3) 12/27/18 06:00 Creat Clearance w eGFR > 60 (>60) 12/27/18 06:00 Random Glucose 120 mg/dL (74-106) H 12/27/18 06:00 Calcium 8.6 mg/dL (8.5-10.1) 12/27/18 06:00 Total Bilirubin 0.3 mg/dL (0.2-1) 12/27/18 06:00 AST 27 U/L (15-37) 12/27/18 06:00 ALT 35 U/L (13-61) 12/27/18 06:00 Alkaline Phosphatase 63 U/L (45-117) 12/27/18 06:00 Total Protein 7.5 g/dl (6.4-8.2) 12/27/18 06:00 Albumin 3.6 g/dl (3.4-5.0) 12/27/18 06:00 RPR Titer Nonreactive (NONREACTIVE) 12/27/18 06:00 HIV 1&2 Antibody Screen Negative 12/26/18 13:10 HIV P24 Antigen Negative 12/26/18 13:10 lab noted - Treatment Hospital Course: Detox Protocol Followed, Detoxed Safely, Responded well, Discharged Condition Good, Rehab Referral Accepted Patient has Accepted a Rehab Referral to: [facility] - Medication Discharge Medications: Ambulatory Orders Pantoprazole Sodium [Protonix -] 40 mg PO DAILY #30 tablet.ec 08/16/16 Albuterol Sulfate Inhaler - [Ventolin HFA Inhaler -] 2 inh PO Q4H PRN #1 inhaler 12/29/18 Naloxone HCl [Narcan] 4 mg NS ASDIR PRN #1 spray 12/29/18 - Diagnosis (1) Opioid dependence with withdrawal Status: Acute (2) Substance induced mood disorder Status: Suspected (3) Weight loss Status: Acute (4) Asthma Status: Chronic Qualifiers: Asthma severity: mild Asthma persistence: intermittent Asthma complication type: with status asthmaticus Qualified Code(s): J45.22 - Mild intermittent asthma with status asthmaticus (5) COPD (chronic obstructive pulmonary disease) Status: Chronic Qualifiers: COPD type: emphysema Emphysema type: unspecified Qualified Code(s): J43.9 - Emphysema, unspecified (6) Hx of hepatitis C Status: Chronic (7) Nicotine dependence Status: Acute Qualifiers: Nicotine product type: cigarettes Substance use status: in withdrawal Qualified Code(s): F17.213 - Nicotine dependence, cigarettes, with withdrawal - AMA Did Patient Leave Against Medical Advice: No
[2018-12-30 09:13] VITALS: BP 118/82; PULSE 79; TEMP 98.2
[2018-12-30] MEDS: PANTOPRAZOLE 40 MG TABLET (FP) PO SCH (10:08)
[2018-12-30] MEDS: PRENATAL VITAMINS W/ FOLIC ACID TABLET (FP) PO SCH (10:08)
== END 2018-12-30 11:30 | disposition home or self-care (01) | DRG 897 ==
LOC: YASAS 10:52 → Y3N 14:08
PROVIDERS: ADMIT Surgery; ATTEND Surgery
PROC: HZ2ZZZZ Detoxification Services for Substance Abuse Treatment (ICD-10-PCS; principal; 2018-12-26)
DX: F11.23 Opioid dependence with withdrawal (principal); J45.22 Mild intermittent asthma with status asthmaticus; F17.213 Nicotine dependence, cigarettes, with withdrawal; F19.24 Other psychoactive substance dependence with psychoactive substance-induced mood disorder; J43.9 Emphysema, unspecified; B18.2 Chronic viral hepatitis C; K21.9 Gastro-esophageal reflux disease without esophagitis; K08.109 Complete loss of teeth, unspecified cause, unspecified class
CPT/HCPCS: 36415; 80053; 85027; 86593; 87389; J0735